=== PATIENT | female | born 1965 | race Caucasian/White ===

== ENCOUNTER → 2018-09-06 | Outpatient (CLI) | payer BC ==
--- NOTE | ~2018-09-06 | SLE ---
[facility] [place] [address] POLYSOMNOGRAPHY STUDY Name: JAYESH CROSS Room #: REG [facility]#: [id number] Admission: 09/06/18 Attend Phys: Litzy Weinstein MD Discharge: Date of : 67 Report #: [id number] THIS REPORT FOR: //name// CC: ROE Weinstein DATE OF SERVICE: 09/06/2018 REFERRING PHYSICIAN: Roe Wong MD [facility]. The patient is 52 years old who weighs 220 pounds and is 63 inches tall with a BMI of 39. The patient's [place] score was 9. The patient underwent split night study at [facility]. During the night study, the patient spent 464 minutes in bed and slept for 388 minutes with a sleep efficiency of 84%. Sleep latency was 14 minutes with a REM latency of 90 minutes. Overall, sleep architecture showed increased stage 1 sleep, normal stage 2 sleep, absent N3 sleep and normal REM sleep. During the initial diagnostic portion of the study, the patient slept for 232 minutes. During that time, there were 15 obstructive apneas, no central or mixed apneas and 69 hypopneas. The patient's apnea hypopnea index was 21.7 per hour with a supine index of 95 per hour. REM sleep was not seen during the diagnostic portion of the study. Nocturnal oximetry study revealed an average oxygen saturation of 94% with a lowest of 93%. Only 3.8 minutes were spent at oxygen saturation less than 90%. EKG monitoring revealed a mean heart rate of 64 beats per minute. No sustained arrhythmias were observed. PLMS were seen at an index of 31 per hour and 7 per hour caused EEG arousals. The patient met the criteria for CPAP initiation. It was started at 5 cm water and titrated up to 8 cm water. At the final pressure, the patient slept for 129 minutes. The patient had supine as well as REM sleep. The patient's AHI was reduced to 0.9 per hour. Oxygen saturation remained above 92%. IMPRESSION: 1. Moderate sleep apnea-hypopnea syndrome at an AHI of 21.7 per hour. 2. No clinically significant nocturnal hypoxia. 3. Moderate PLMS. RECOMMENDATIONS: 1. CPAP at 8 cm water completely eliminated the patient's sleep apnea and should be used on a nightly basis. [address] [address] POLYSOMNOGRAPHY STUDY Name: AMERICAJAYESH Room #: REG [facility]#: [id number] Admission: 09/06/18 Attend Phys: Litzy Weinstein MD Discharge: Date of : 67 Report #: [id number] 2. Follow up in 4-6 weeks to assess compliance with CPAP and to document clinical improvement. 3. Weight loss is strongly advised. 4. Avoid [employer] depressants. 5. Cautioned regarding driving until symptoms of sleep apnea resolved with the use of CPAP. 6. The patient should also be further evaluated for symptoms of restless legs during the day. By: 1415 [id number] Matheus Davis MD /gurmeet
== END ==
LOC: SLEEPLAB 10:37
DX: G47.30 Sleep apnea, unspecified (principal); G47.61 Periodic limb movement disorder

== ENCOUNTER → 2021-05-17 | Outpatient (CLI) | payer OTHER | LOC: SJCVCIMAG 10:21 | PROVIDERS: ATTEND Internal Medicine | DX: I34.0 Nonrheumatic mitral (valve) insufficiency (principal); E03.9 Hypothyroidism, unspecified; F32.9 Major depressive disorder, single episode, unspecified; F41.9 Anxiety disorder, unspecified; I10 Essential (primary) hypertension; E78.5 Hyperlipidemia, unspecified; R73.03 Prediabetes; J42 Unspecified chronic bronchitis; Z87.891 Personal history of nicotine dependence; Z79.899 Other long term (current) drug therapy; Z72.89 Other problems related to lifestyle; Z88.2 Allergy status to sulfonamides ==